=== PATIENT | female | born 1960 | race Hispanic/Latino ===

== ENCOUNTER 2025-01-28 11:40 | Emergency (ER) | payer OTHER, SELFPAY ==
[2025-01-28 11:55] VITALS: BP 130/59; PULSE 67; RESP 18; TEMP 36.5; O2SAT 98
[2025-01-28] MEDS: TETANUS,DIPHTHERIA,AC PERTUSSIS ADULT (0.5 ML) BOOSTRIX IM (13:10)
--- NOTE | 2025-01-28 13:51 | ED.WOUNDLAC ---
HPI - Wound/Laceration General Chief Complaint: Wound/Laceration Stated Complaint: right ankle lac Time Seen by Provider: 01/28/25 12:31 History of Present Illness HPI narrative: Patient is a 64-year-old female who presents ER with chin laceration on the right side. She struck her manley on a metal piece of a bed. Bleeding controlled. Unknown last tetanus. No other issues. Related Data Allergies Allergy/AdvReac Type Severity Reaction Status Date / Time No Known Allergies Allergy Verified 01/28/25 12:02 Review of Systems Constitutional: Constitutional: Reports no additional constitutional complaints Integumentary/Breasts: Skin/Breast: Reports system reviewed and no additional complaints, except as docu Neurologic: Reports system reviewed and no additional complaints, except as documented PMFSH Past Medical History Medical History (Updated 01/28/25 @ 14:07 by Yonathan Davies MD) Healthy female adult Surgical History Surgical History (Updated 01/28/25 @ 14:07 by Yonathan Davies MD) No history of previous surgery Exam Narrative: GENERAL: Well-appearing, well-nourished, and in no acute distress. HEAD: Normocephalic, atraumatic. EXTREMITIES: Normal range of motion. No edema. SKIN: Warm, dry. V-shaped laceration right lower manley 3.5 cm in length that goes into the fatty tissue. No foreign body in a bloodless field. NEURO: Alert and oriented x3. PSYCH: Normal mood and affect. Course Course Emergency Course: Wound repaired. Precautions given. Discharge. Vital Signs Vital signs: Vital Signs Temperature 97.7 F 01/28/25 11:55 Pulse Rate 01/28/25 11:55 Respiratory Rate 01/28/25 11:55 Blood Pressure 130/59 L 01/28/25 11:55 Pulse Oximetry 98 01/28/25 11:55 Oxygen Delivery Room Air 01/28/25 11:55 Temperature 97.7 F 01/28/25 11:55 Pulse Rate 01/28/25 11:55 Respiratory Rate 01/28/25 11:55 Blood Pressure 130/59 L 01/28/25 11:55 Pulse Oximetry 98 01/28/25 11:55 Oxygen Delivery Room Air 01/28/25 11:55 Procedures Laceration Laceration 1: Date: 01/28/25 Time: 14:06 Site: lower extremity Side (If applicable): right Size (cm): 3.5 Description: flap Depth: simple, single layer Local Anesthetic: lidocaine 1% and with epi Amount of anesthesia used (mL): 4 Pre-repair: wound explored and irrigated ====== Skin Level ====== Skin layer closed with: nylon Size (cm): 3-0 Number of sutures: 4 Technique: simple, interrupted (3) and horizontal mattress (1) ====== Subcutaneous Layer ====== ====== Muscle Layer ====== ====== Tendon Layer ====== Discharge Plan Discharge Clinical Impression: Laceration Patient Disposition: Home Condition: Stable Instructions: Laceration (ED) Additional Instructions: Remove the sutures in 14 days. Return the ER if there is pus draining from the wound, you have fever, or you have additional concerns. Your tetanus shot was updated. Take Tylenol or ibuprofen as needed for pain. Patient Language: Gibralt[place] Follow-up/Referrals: Rodney Mojica MD [Physician] - 2 Weeks PHYSICIAN,DRIVERS LICENSE EXAMINER [Primary Care Provider] -
== END 2025-01-28 14:22 | disposition home or self-care (01) ==
PROVIDERS: Emergency Provider Emergency Medicine
DX: S01.81XA Laceration without foreign body of other part of head, initial encounter (principal); W22.09XA Striking against other stationary object, initial encounter; Z23 Encounter for immunization
CPT/HCPCS: 12002; 90471; 90715; 99282

== ENCOUNTER 2025-02-09 17:12 | Emergency (ER) | payer OTHER, SELFPAY ==
[2025-02-09 17:17] VITALS: BP 140/76; PULSE 66; RESP 17; TEMP 36.6; O2SAT 99
--- NOTE | 2025-02-09 20:16 | ED.LOWEXIN ---
HPI - Extremity Injury (Lower) General Chief Complaint: Extremity Injury, Lower Stated Complaint: INFECTION WOUND Time Seen by Provider: 02/09/25 19:55 History of Present Illness HPI Narrative: 64-year-old female presents emergency department with concerns for an infected wound to her right lower extremity. Patient was here on 01/28/2025 after obtaining a laceration to her right lower manley. Patient had 4 sutures placed was advised to have them removed in 14 days. She states over the past 2 days she has noticed surrounding redness and warmth and today noticed pus draining from her wound which prompted her to come to the ER. She denies fever or vomiting. Related Data Allergies Allergy/AdvReac Type Severity Reaction Status Date / Time No Known Allergies Allergy Verified 02/09/25 17:20 Review of Systems Review of Systems: All systems reviewed & are unremarkable except as noted in HPI and below PMFSH Past Medical History Medical History Healthy female adult Surgical History Surgical History No history of previous surgery Exam Narrative: GENERAL: Well-appearing, well-nourished, and in no acute distress. HEAD: Normocephalic, atraumatic. EYES: EOMI. ENT: Nares clear, no rhinorrhea or epistaxis. Mucous membranes moist. NECK: Supple. CHEST: Clear to auscultation. No respiratory distress. HEART: Regular rate and rhythm. No murmur heard. Normal peripheral pulses. EXTREMITIES: RLE: healing laceration to right manley with 3 interrupted sutures and 1 horizontal mattress intact. There is approximate 1 cm in radius surrounding erythema and warmth with scant serous drainage from the wound. There is no purulence or fluctuance. No induration. No discrimination or vesicles. No wound dehiscence. The wound edges are well approximated SKIN: Warm, dry, no rash. NEURO: No focal deficits. Alert and oriented x3 Course Vital Signs Vital signs: Vital Signs Temperature 97.8 F 02/09/25 17:17 Pulse Rate 66 02/09/25 17:17 Respiratory Rate 17 02/09/25 17:17 Blood Pressure 140/76 02/09/25 17:17 Pulse Oximetry 99 02/09/25 17:17 Oxygen Delivery Room Air 02/09/25 17:17 Temperature 98 F 02/09/25 20:38 Pulse Rate 74 02/09/25 20:38 Respiratory Rate 18 02/09/25 20:38 Blood Pressure 132/70 02/09/25 20:38 Pulse Oximetry 100 02/09/25 20:38 Oxygen Delivery Room Air 02/09/25 17:17 MDM - Extremity Injury (Lower) MDM Narrative Medical decision making narrative: 64-year-old female presents emergency department with concerns for an infected right lower extremity wound. Patient had sutures placed 12 days ago in our emergency department for laceration. She noticed surrounding redness, swelling, warmth 2 days ago and notice purulent drainage today. Vitals are stable. She is afebrile and nontoxic appearing. Exam is notable for the above. Patient does have a small area of surrounding erythema and warmth. The wound edges are well approximated and otherwise well healing. There is a scant amount of serous drainage with no purulence. The sutures were removed without complication. The patient was started on Bactrim to cover cellulitis. Return precautions discussed. She is agreeable with the plan verbalized understanding. Discharged in stable condition Discharge Plan Discharge Clinical Impression: Infected wound, Encounter for removal of sutures Patient Disposition: Home Condition: Stable Instructions: Antibiotic Form, Cellulitis (ED), Stitches Removal (ED) Additional Instructions: Please take the antibiotics as directed. Keep the wound clean and dry. Follow-up with your primary care provider. Return to the emergency department if you develop a fever, increasing redness, increasing drainage or other concerning symptoms. Patient Language: Macedonian Prescriptions: New sulfamethoxazole-trimethoprim 800-160 mg tablet 1 tablet PO Q12H Qty: 14 0RF Follow-up/Referrals: PHYSICIAN,SENIOR COMPENSATION CONSULTANT [Primary Care Provider] -
[2025-02-09] MEDS: SULFAMETHOXAZOLE/TRIMETHOPRIM 800/160 MG DS TABLET 1 TAB PO (20:33)
[2025-02-09 20:38] VITALS: BP 132/70; PULSE 74; RESP 18; TEMP 36.6; O2SAT 100
== END 2025-02-09 20:38 | disposition home or self-care (01) ==
PROVIDERS: Emergency Provider Physician Assistant
DX: T81.41XA Infection following a procedure, superficial incisional surgical site, initial encounter (principal)
CPT/HCPCS: 15853; 99283; A9270